=== PATIENT | male | born 1935 | race Caucasian/White ===

== ENCOUNTER 2017-11-30 02:12 | Inpatient (IN) | payer OTHER, MEDICARE ==
[~2017-11-30] VITALS: Ht 170.2 cm; Wt 80.7 kg
[~2017-11-30 02:12] MED LIST: ASPIRIN EC325 M2 PO; ASPIRIN EC81 M1 PO; BREO ELLIPTA 11 EACH; COLACE100 M1 PO; CRESTOR20 M2 PO; DILAUDID2 M1 PO; HYDROCHLOROTH12.5 M2 PO; MELATONIN PO; MIRALAX17 G1 PO; MS CONTIN15 M2 PO; PROPRANOLOL HC120 M1 PO; ST. JOSEPH ASPI81 M1 PO
--- NOTE | 2017-11-30 08:15 | Admission Core Measures ---
Acute Coronary Syndrome (CM) ACS Core Measures Acute Coronary Syndrome Diagnosis No Congestive Heart Failure (NEW) CHF Core Measures Congestive Heart Failure Diagnosis No Cerebrovascular Accident (NEW) CVA Core Measures CVA/TIA Diagnosis No Venous Thromboembolism VTE Core Wyatt (View Protocol) VTE Risk Factors Surgery No Mechanical VTE Prophylaxis d/t N/A MechProphylax Ordered No VTE Pharm Prophylaxis d/t NA PharmProphylax ordered Problem List As ranked by this Provider includes Assessment & Plan 1. Unilateral primary osteoarthritis, left hip HOME MEDS Home Med List Aspirin ([place] Aspirin) 81 MG TABLET.DR 1 TAB PO DAILY HEARTHEALTH ( Reported) Hydrochlorothiazide 12.5 MG TABLET 1 TAB PO DAILY HTN (Reported) [MELATONIN] 5 MG 1 TAB PO QHS PRN SLEEP (Reported) Propranolol HCl (Propranolol HCl ER) 120 MG CAP.SA.24H 1 CAP PO DAILY TREMOR (Reported) Rosuvastatin Calcium (Crestor) 20 MG TABLET 1 TAB PO DAILY CHOLESTEROL ( Reported)
--- NOTE | 2017-11-30 08:17 | Surg Short-stay <48hrs Dis Sum ---
Visit Information Visit Dates Admission Date: 11/30/17 Discharge Date: 12/02/17 Surgical Short Stay DC Summary Admission Diagnosis: Primary osteoarthritis left hip Final Diagnosis: Same, status post left total hip arthroplasty Procedure(s): Left total hip arthroplasty Summary/Significant Findings: Patient was admitted to the hospital for an elective total joint replacement. Procedure was tolerated well and patient was transferred to a general surgical floor. Diet was advanced and tolerated. Physical therapy performed evaluation and treatment. At time of hospital discharge, vital signs were stable, neurovascular status was intact, and pain was controlled with the use of oral pain medications. Condition at Discharge: Stable Discharge Disposition: home health services Discharge instructions provided to patient/family: Yes Post discharge follow-up plan: Follow up with Dr. Diaz in 6 weeks from date of surgery. Please call his office to schedule/confirm this appointment.
--- NOTE | 2017-11-30 09:55 | Patient Discharge Instructions ---
Discharge Instructions General Discharge Information You were seen/treated for: Primary Left hip osteoarthritis You had these procedures: Left total hip arthroplasty Watch for these problems: Increasing pain despite the use of pain medication Increasing redness, warmth or swelling Drainage of any type from incision Inability to bear weight on operative leg Persistent nausea and vomiting Fever greater than 101.5 degrees Other wound care: Please keep wound clean and dry. No ointments or lotions of any type on or near incision. Your dressing will be changed by your nurse on the second day after your surgery. Daily dry dressing changes are recommended each day thereafter. You may shower 48hr after surgery. Do not soak your wound- no tub baths or swimming. Special Instructions: Aspirin: You are taking this medication to help prevent blood clot formation. Please take with food to protect your stomach lining. Take as directed. Protonix (pantoprazole): Take this medication to protect your stomach lining while taking high dose aspirin. Constipation: Pain medication can cause constipation. It is recommended that you take Colace and miralax daily. You may discontinue this medication if you develop loose stool or diarrhea. If you wish to continue this medication, it is available over the counter. If you are unable to move your bowels or pass gas after several days, please contact your doctor. Diet Continue normal diet: Yes Recommended Diet: Regular Activity Activity Limited to: Weight bear as tolerated Additional ACTIVITY Info: Use assistive devices as needed Acute Coronary Syndrome Inclusion Criteria At DC or during hospital stay patient has or had the following: ACS DIAGNOSIS No Discharge Core Measures Meds if any: Prescribed or Continued at Discharge Meds if any: NOT Prescribed or Continued at Discharge Congestive Heart Failure Inclusion Criteria At DC or during hospital stay patient has or had the following: CHF DIAGNOSIS No Discharge Core Measures Meds if any: Prescribed or Continued at Discharge Meds if any: NOT Prescribed or Continued at Discharge Cerebrovascular accident Inclusion Criteria At DC or during hospital stay patient has or had the following: CVA/TIA Diagnosis No Discharge Core Measures Meds if any: Prescribed or Continued at Discharge Meds if any: NOT Prescribed or Continued at Discharge Venous thromboembolism Inclusion Criteria VTE Diagnosis No VTE Type NONE VTE Confirmed by (Test) NONE Discharge Core Measures - Per Current guidelines, there needs to be overlap - treatment for the first 5 days of Warfarin therapy. - If discharged on Warfarin prior to 5 days of - overlap therapy, the patient will need to be - assessed for post discharge needs including - *Post discharge parental anticoagulation - *Warfarin and/or parental anticoagulation education - *Follow up date to check INR post discharge At least 5 days overlap therapy as Inpatient No Meds if any: Prescribed or Continued at Discharge Note: Overlap Therapy is Warfarin and Anticoagulant Meds if any: NOT Prescribed or Continued at Discharge
[2017-11-30] MEDS ORDERED: DILAUDID2 M1 PO (10:15)
[2017-11-30] MEDS ORDERED: PROTONIX20 M1 PO (10:15)
[2017-11-30] MEDS ORDERED: COLACE100 M1 PO (10:15)
[2017-11-30] MEDS ORDERED: MIRALAX17 G1 PO (10:15)
[2017-11-30] MEDS ORDERED: ASPIRIN EC325 M2 PO (10:15)
--- NOTE | 2017-11-30 12:00 | Operative Report ---
Operative/Inv Procedure Report Surgery Date: 11/30/17 Name of Procedure: Left total hip replacement Pre-Operative Diagnosis: Primary left hip DJD Post-Operative Diagnosis: Same Estimated Blood Loss: 250 Surgeon/Nursing Services Manager: Humberto Diaz MD Anesthesia: block Operative/Procedure Note Note: Description of Procedure: The patient was taken to the operating room and positively identified. After induction of spinal anesthesia and administration of appropriate pre-operative antibiotics, the patient was positioned supine on the operating room table and all bony prominences were well padded. After performing a surgical timeout, the left lower extremity was prepped and draped in the usual sterile fashion. A direct anterior approach was made to the left hip. The incision was carried sharply through superficial soft tissues to the level of the fascia. Meticulous hemostasis was maintained with Bovie electocautery. The fascia over the tensor fascia celia muscle was opened sharply and the interval between the TFL and the sartorius was entered bluntly taking care to stay lateral to the lateral femoral cutaneous nerve. Retractors were placed around the femoral neck and the pericapsular fat was identified. The ascending branches of the lateral femoral circumflex vessels were identified and carefully coagulated. The pericapsular fat and anterior capsule were then resected. A napkin ring osteotomy was performed and the femoral head was removed without difficulty. Attention was then turned to the acetabulum. After appropriate placement of retractors, the acetabulum was exposed. Soft tissue was cleaned from the acetabular margin and notch. Overhanging osteophytes were removed and the teardrop was exposed. The acetabulum was then sequentially reamed to accept a 56 mm Lio Tritanium hemispherical solid shell. This was impacted into place in the appropriate position and fitted with a 36 mm Trident X3 zero degree polyethylene insert. Attention was then turned to the femur. After performing the appropriate ligament releases, the proximal femur was exposed. It was then sequentially broached to accept a size 7 Lio secure fit advanced 127 neck angle stem. This was trialed for leg length and stability. The trial component was removed and the final component was impacted into place. The trunnion was carefully cleaned and fit with a 36 mm, +0 Biolox delta ceramic femoral head. The hip was reduced and put through a full range of motion and found to be stable. The articular space was then irrigated with sterile saline. The periarticular soft tissues were infilitrated with Marcaine. The fascial layer was closed with interrupted #1 vicryl suture and the skin was re-approximated with interrupted 2 -0 vicryl. The skin was closed with a running 3-0 V-Lock suture. Steri-strips and a sterile dressing were applied. The patient was awakened and taken to the recovery room in satisfactory condition.
--- NOTE | 2017-11-30 13:57 | RADIOLOGY REPORT ---
EXAMINATION: XR HIP, LEFT CLINICAL INFORMATION: Total hip replacement COMPARISON: None TECHNIQUE: Two views of the left hip. FINDINGS: Total left hip arthroplasty hardware appears well seated and in anatomic alignment. No acute periprosthetic fracture is seen. Adjacent soft tissue gas is noted. IMPRESSION: Status post left total hip arthroplasty with expected postoperative changes.
--- NOTE | 2017-11-30 16:01 | PN- Orthopedic ---
Subjective Subjective: POC S/P LEFT HOLLIE SITTING UP IN CHAIR COMFORTABLY BEULAH CP, SOB, NO N+V WITH DIET HAS AMBUALTED WITH PT BUT UNSTEADY Objective Vital Signs and I&Os Vital Signs Date Time Temp Pulse Resp B/P B/P Pulse O2 O2 Flow FiO2 Mean Ox Delivery Rate 11/30 1502 94 Nasal 2.0L Cannula Intake & Output 11/30 1600 11/30 0811/30 0000 11/29 1600 11/29 0000 Intake Total Output Total Balance Patient 178 lb 178 lb Weight Weight Standing Scale Measurement Method Physical Exam: CV: RRR LUNGS: CLEAR ABD: SOFT, +BS EXT: DRSG DRY THIGH SOFT DISTAL CMS INTACT Assessment/Plan Assessment/Plan ORTO STABLE PLAN ASA FOR DVT PROPHYLAXIS OOB WITH PT/AMBULATE WBAT LEFT LE TITRATE PAIN MEDS ADVANCE DIET HOME D/C PLANNING Core Measures Venous Thromboembolism VTE Risk Factors Surgery No Mechanical VTE Prophylaxis d/t N/A MechProphylax Ordered No VTE Pharm Prophylaxis d/t NA PharmProphylax ordered
[2017-11-30 19:07] VITALS: BP 140/70
[2017-11-30 22:00] VITALS: BP 128/58
[2017-12-01 02:00] VITALS: BP 124/62
[2017-12-01 06:00] VITALS: BP 124/68
--- NOTE | 2017-12-01 07:50 | PN- Orthopedic ---
Subjective Subjective: Awake, alert Complained of pain overnight - well controlled at this time Ambulated many times per nursing Objective Vital Signs and I&Os Vital Signs Date Time Temp Pulse Resp B/P B/P Pulse O2 O2 Flow FiO2 Mean Ox Delivery Rate 12/01 0600 97.8 69 18 124/68 95 Room Air 12/01 0200 97.8 71 20 124/62 95 Room Air 12/01 0000 94 Room Air 11/30 2200 97.5 67 20 128/58 94 Room Air 11/30 1907 97.9 64 20 140/70 96 Room Air 11/30 1617 58 140/78 11/30 1616 97.5 11/30 1502 94 Nasal 2.0L Cannula Intake & Output 12/01 0800 12/01 0000 11/30 1600 11/30 0800 11/30 0000 11/29 1600 Intake Total 1390 Output Total 825 600 Balance -825 790 Intake, IV 550 Intake, Oral 840 Output, Urine 825 600 Patient 178 lb 178 lb Weight Weight Standing Scale Measurement Method Physical Exam: afebrile, vss voiding without difficulty General: alert and oriented times three Chest: clear anteriorly bilaterally, RRR Abd: soft, good bs Ext: warm, trace edema BLE, normosensate, ood 5/5 CESAR BLE, no calf tenderness Wd: dressed, dry, ice pack in place Current Medications: Current Medications Sig/Raymond Start time Last Medication Dose Route Stop Time Status Admin Acetaminophen 650 MG Q4P PRN 11/30 1430 AC PO Acetaminophen 0 .STK-MED ONE 11/30 0938 DC PO Acetaminophen 975 MG ONCE 11/30 0000 DC PO 11/30 2359 Aspirin 325 MG BID 11/30 2200 AC 11/30 PO 2116 Atorvastatin Calcium 80 MG 1700 11/30 1700 DC PO Atorvastatin Calcium 80 MG 1700 11/30 1700 AC 11/30 PO 1610 Budesonide/ 2 PUF BID 11/30 2200 AC 11/30 Formoterol Fumarate INH 2117 Budesonide/ 2 PUF BID 11/30 1000 DC Formoterol Fumarate INH Cefazolin Sodium 2 GM IQ8 11/30 1600 DC 12/01 N/A 1 UNIT IV 12/01 0029 0009 Cefazolin Sodium 2,000 MG ONCE 11/30 0000 DC IV 11/30 2359 Dextrose/Lactated 1,000 ML Q13H 11/30 1430 AC 12/01 Ringer's IV 0145 Docusate Sodium 100 MG BID 11/30 2200 AC 11/30 PO 2116 Fentanyl Citrate 100 MCG .STK-MED ONE 11/30 0929 DC IM 11/30 0930 Hydrochlorothiazide 12.5 MG DAILY 12/01 1000 AC PO Hydrochlorothiazide 12.5 MG DAILY 11/30 1000 DC PO Hydromorphone HCl 2 MG Q4P PRN 11/30 1430 AC PO Hydromorphone HCl 4 MG Q4P PRN 11/30 1430 AC 12/01 PO 0557 Hydromorphone HCl 2 MG .STK-MED ONE 11/30 1328 DC IM 11/30 1329 Hydromorphone HCl 2 MG .STK-MED ONE 11/30 1256 DC IM 11/30 1257 Hydromorphone HCl 2 MG .STK-MED ONE 11/30 1242 DC IM 11/30 1243 Ketorolac 15 MG Q8P PRN 11/30 1430 AC Tromethamine IV 12/03 1424 Melatonin 5 MG AT BEDTIME PRN 11/30 1430 AC 12/01 PO 0100 Melatonin 5 MG AT BEDTIME PRN 11/30 1000 DC PO Midazolam HCl 4 MG .STK-MED ONE 11/30 0928 DC IM 11/30 0929 Morphine Sulfate 2 MG Q2P PRN 11/30 1430 AC 12/01 IV 0430 Omeprazole 20 MG DAILY AC 12/01 0700 AC 12/01 PO 0554 Ondansetron HCl 4 MG Q6P PRN 11/30 1430 AC IV Oxycodone HCl 0 .STK-MED ONE 11/30 0937 DC PO Oxycodone HCl 10 MG ONCE 11/30 0000 DC PO 11/30 2359 Polyethylene Glycol 17 GM DAILY 12/01 1000 AC PO Promethazine HCl 12.5 MG Q6P PRN 11/30 1430 AC IV 12/07 1014 Propranolol HCl 120 MG DAILY 11/30 1000 CAN PO Propranolol HCl 120 MG DAILY 11/30 1000 AC 11/30 PO 1617 Tranexamic Acid 2,000 MG .STK-MED ONE 11/30 0828 DC IV 11/30 0929 Assessment/Plan Assessment/Plan 82yo male pod 1 s/p L HOLLIE asa 325mg po bid for dvt ppx pain management PT - WBAT dc planning Core Measures Venous Thromboembolism VTE Risk Factors Surgery No Mechanical VTE Prophylaxis d/t N/A MechProphylax Ordered No VTE Pharm Prophylaxis d/t NA PharmProphylax ordered
[2017-12-01 09:26] LABS: ABSOLUTE BASOPHIL COUNT 0 /CUMM (0.0-0.2); ABSOLUTE EOSINOPHIL COUNT 0 /CUMM (0.0-0.7); ABSOLUTE GRANULOCYTE CT 8.1 /CUMM (1.4-6.5); ABSOLUTE LYMPH COUNT 0.9 /CUMM (1.2-3.4); ABSOLUTE MONOCYTE COUNT 0.9 /CUMM (0.10-0.60); BASOPHIL % 0 % (0.0-2.0); EOSINOPHIL % 0.2 % (0-5); GRANULOCYTE % 81.8 % (42.2-75.2); HEMATOCRIT 36.8 % (42-52); MEAN CORPUSCULAR HGB 30.4 PG (27.0-31.0); MEAN CORPUSCULAR HGB CONC 33.4 G/DL (33.0-37.0); MEAN CORPUSCULAR VOLUME 90.8 FL (80.0-94.0); MEAN PLATELET VOLUME 7.5 FL (7.4-10.4); PLATELET COUNT 193 /CUMM (130-400); RED BLOOD CELL CT 4.05 /CUMM (4.70-6.10)
[2017-12-01 09:28] VITALS: BP 122/72
[2017-12-01 14:45] VITALS: BP 120/60
[2017-12-01 22:42] VITALS: BP 106/58
[2017-12-02 06:53] VITALS: BP 114/60
--- NOTE | 2017-12-02 09:35 | PN- Orthopedic ---
Subjective Subjective: No acute overnight events reported. Has been having pain but is reluctant to take narcotic. Has been oob. Has ambulated with PT. Denies chest pain, shortness of breath and difficulty breathing. Denies nausea and vomitting. Has been voiding. Tolerating diet. Objective Vital Signs and I&Os Vital Signs Date Time Temp Pulse Resp B/P B/P Pulse O2 O2 Flow FiO2 Mean Ox Delivery Rate 12/02 0653 97.7 67 20 114/60 98 Room Air 12/01 2242 99.2 63 20 106/58 95 Room Air 12/01 1445 97.7 60 20 120/60 97 Intake & Output 12/02 1600 12/02 0800 12/02 0000 12/01 1600 12/01 0800 12/01 0000 Intake Total 140 260 794 420 3783 Output Total 200 300 500 825 600 Balance -60 -40 -260 -125 790 Intake, IV 20 20 600 550 Intake, Oral 120 240 240 100 840 Number 0 Bowel Movements Output, Urine 200 300 500 825 600 Physical Exam: General: Alert and oriented x3, no acute distress Cardiac: RRR, s1s2 Pulm: C T A bilaterally ABD: Non-tender, non-distended Extremiteis: Moves all extremities, distal sensation grossly intact. Skin warm and well perfused. DP pulses palpable bilaterally. Bilateral calves soft and non-tender. No peripheral edema noted. Dressing dry and intact. Thigh compartment soft. Assessment/Plan Assessment/Plan This is an 82 year old male, POD 2, s/p L THR, c/o pain at surgical site -Dilaudid q4-6 hour prn for pain, encouraged -OOB, wbat -Diet as toelrated -ASA 325 bid for dvt ppx -Anticipate dc to home today Will emily Diaz Core Measures Venous Thromboembolism VTE Risk Factors Surgery No Mechanical VTE Prophylaxis d/t N/A MechProphylax Ordered No VTE Pharm Prophylaxis d/t NA PharmProphylax ordered
[2017-12-02 10:39] VITALS: BP 114/60
[2017-12-02] MEDS ORDERED: MS CONTIN15 M3 PO (11:34)
== END 2017-12-02 16:18 | disposition home health service (06) | DRG 470 ==
LOC: SDA 02:12 → ENRESERV 13:14 → ENTRNSPT 14:03 → 2NA 14:19 → EDTRNSPT 14:26 → EDTRNSPTSTS 14:26 → CMPTRNSPT 14:37 → ENPENDDIS 12-02 11:45 → 2NA 12-02 16:18
PROVIDERS: Physician Assistant Surgical
PROC: 0SRD0JZ Replacement of Left Knee Joint with Synthetic Substitute, Open Approach (ICD-10-PCS; principal; 2017-11-30)
DX: M16.12 Unilateral primary osteoarthritis, left hip (principal); I10 Essential (primary) hypertension
CPT/HCPCS: 2NAP; 36415; 73502-LT; 82436; 97110-GO; 97116-GO; 97161-GP; 97530-GO; J0131; J0690; J0735; J2550; J3490